=== PATIENT | female | born 1980 | race Two or more races ===

== ENCOUNTER 2021-06-16 19:46 | Emergency (ER) | payer OTHER ==
[~2021-06-16] VITALS: Ht 175.3 cm; Wt 79.4 kg
[2021-06-16] MEDS ORDERED: ALL DAY ALLERGY10 M3 (19:57)
== END 2021-06-17 01:46 ==
LOC: ER 19:46
DX: R33.9 Retention of urine, unspecified (principal)

== ENCOUNTER 2021-06-21 08:42 | Outpatient (CLI) | payer OTHER ==
[~2021-06-21 08:42] MED LIST: ALL DAY ALLERGY10 M3
== END 2021-06-21 09:06 | disposition home or self-care (01) ==
LOC: TOM 08:42
PROVIDERS: ATTEND Specialist
DX: R33.9 Retention of urine, unspecified (principal)